=== PATIENT | female | born 1965 | race African-American/Black ===

== ENCOUNTER 2017-03-08 14:00 | Outpatient (CLI) | payer OTHER ==
--- NOTE | 2017-03-08 15:33 | Ultrasound Report ---
ULTRASOUND PELVIS COMPLETE - TRANSABDOMINAL AND TRANSVAGINAL: INDICATION: Uterine fibroids. COMPARISON: None similar at this institution. FINDINGS: Transabdominal and transvaginal pelvic sonography demonstrates 7.5 x 5.2 x 4.7 cm anteverted, inhomogenous uterus with at least 2 fibroids centrally measuring approximately 7 mm each as on endovaginal images 5-18. Endometrial thickness 1 cm towards the fundus, image 14. Minimal pelvic free fluid. Unremarkable right ovary at 2.1 x 1.1 x 1.4 cm. Left ovary enlarged to 7.1 x 5.6 x 6.7 cm with a 5.7 x 5.3 cm complex/hemorrhagic intrinsic cyst with diffuse echoes versus solid lesion as on endovaginal image 33. CONCLUSION: At least 2 small uterine fibroids and an enlarged left ovary with complex lesion, as described. Please also correlate clinically, with prior relevant imaging, if available or further with short term sonographic followup or further characterization with CT or MRI, as warranted. Thank you for the opportunity to participate in this patient's care.
== END 2017-03-08 14:01 | disposition home or self-care (01) ==
LOC: US 14:00
DX: D25.9 Leiomyoma of uterus, unspecified (principal); N83.202 Unspecified ovarian cyst, left side; N85.4 Malposition of uterus
CPT/HCPCS: 76830; 76856